=== PATIENT | male | born 1940 | race Caucasian/White ===

== ENCOUNTER 2016-06-02 18:15 | Emergency (ER) | payer MEDICARE ==
--- NOTE | ~2016-06-02 | CT4 ---
[facility] A Service of [facility] [place] [facility] RADIOLOGY TEXT RESULTS PATIENT: SINDHU GUZMAN LOCATION: [facility] : 44 UNIT #: [id number] AGE: [address]: Charli Hayes MD SEX: M ORDER DR: [id number] [facility] [address] [place], [place] [address] [id number] E MR#: [id number] Acc #: [id number] NAME: SINDHU GUZMAN : 1940 SEX: M STUDY DATE/TIME: 06/02/2016 17:42 UNIT: [facility] ROOM: STUDY DESCRIPTION: CT Abd and Pelv Wo Cont Attending Physician: Charli Hayes Ordering Physician: Ed Doctor [id number] [facility] Primary Care Physician: Silas Damon M.D. MEDICAL IMAGING REPORT This report is preliminary unless electronic signature is present PLAN CT scan of the abdomen and pelvis without contrast 06/02/2016 HISTORY Right flank pain for two weeks. Evaluate for obstructing renal calculus. TECHNIQUE Spiral CT was performed through the abdomen and pelvis without oral or intravenous contrast administration using renal stone protocol. This CT exam was performed with one or more of the following radiation dose reduction techniques: automatic exposure control, adjustment of mA and/or kV according to patient size, and iterative reconstruction. FINDINGS Abdomen: Exam is somewhat limited by the patient's large body habitus with resulting artifact. There is no prior exam for comparison. There is no obstructing renal or ureteral calculus. Kidneys are somewhat atrophic bilaterally. The liver is normal in appearance. 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 There is fatty infiltration of the pancreas. There is a 1 cm calcification in the head of the pancreas. Correlate clinically for chronic calcific pancreatitis. The adrenal glands are normal. Subtle areas of increased density are seen within the gallbladder lumen and may represent a cholelithiasis. Pelvis: There is colonic diverticulosis without evidence of diverticulitis. The gut is otherwise unremarkable. No adenopathy is seen and there is no free fluid in the abdomen or pelvis. IMPRESSION 1. Exam is somewhat limited by the patient's large body habitus with resulting artifact. [facility] A Service of [facility] [place] & [facility] RADIOLOGY TEXT RESULTS PATIENT: SINDHU GUZMAN LOCATION: [facility] : 44 UNIT #: [id number] AGE: [address]: Charli Hayes MD SEX: M ORDER DR: 2. No obstructing renal or ureteral calculus. Kidneys are somewhat atrophic bilaterally. 3. Fatty infiltration of the pancreas. There is a 1 cm calcification in the head of the pancreas which could reflect chronic calcific pancreatitis. Correlation with patient history is suggested. 4. 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 5. Multiple splenules are seen in the left upper quadrant. 6. Diverticulosis. No evidence of diverticulitis. 7. Questionable punctate areas of increased density in the gallbladder lumen could reflect cholelithiasis. Dictated by... Gurmeet Lee M.D. THIS IS AN ELECTRONICALLY VERIFIED REPORT Gurmeet Lee M.D. at 06/03/2016 2:14 PM LARISA/ko TD: 06/03/2016 08:57 JOB #: [id number] MEDICAL IMAGING REPORT COPY
[2016-06-02 18:03] LABS: BASOPHIL% 0.2 % (0-2.5); EOSINOPHIL# 0.3 X10e3 (0-0.7); HEMOGLOBIN 11.2 gm/dL (13.0-16.0); LYMPHOCYTE# 9.6 X10e3 (1.0-3.5); LYMPHOCYTE% 55.5 % (17.0-45.0); MEAN CELL VOLUME 84.8 FL (83-96); MEAN CORPUSCULAR HGB CONC 31.9 g/dL (30-36); MEAN PLATELET VOLUME 8.3 FL (6.5-11.5); MONOCYTE# 1.2 X10e3 (0-1.0); MONOCYTE% 6.9 % (3.0-12.0); NEUTROPHIL# 6.1 X10e3 (1.5-7.1); NEUTROPHIL% 35.4 % (40-75); PLATELET COUNT 236 X10e3 (140-420); RED BLOOD COUNT 4.13 X10e (3.90-5.60); RED CELL DISTRIBUTION WIDTH 16.2 % (11.0-15.5); WHITE BLOOD COUNT 17.2 X10e3 (4.0-10.5)
[2016-06-02 18:05] LABS: DIFF IND YES
[~2016-06-02 18:15] MED LIST: ADVIL200 M2 PO; ALBUTEROL17 GM INH; ALLOPURINOL300 MG PO; AMIODARONE PO; ASPIRIN81 MG PO; ATORVASTATIN CA10 MG PO; BENAZEPRIL PO; BENTYL20 MG PO; BUSPAR PO; BUSPAR5 M1 PO; BUSPIRONE HCL10 M1 PO; BUSPIRONE HCL10 MG PO; BYETTA5 MCG/0.02 SQ; CLARITIN10 M2 PO; CLARITIN10 M3 PO; CLINORIL PO; COLACE PO; COMBIVENT INH14.7 GM INH; CORDARONE200 M1 PO; CORTIZONE-528 GM TOP; COUMADIN PO; COUMADIN1 MG PO; COUMADIN5 MG PO; DEPO-TESTOS200 MG/ML INJ; DESYREL150 M1 PO; DESYREL300 MG PO; ELIQUIS5 MG PO; FLONASE 0.05% N16 G1; FLONASE16 GM; FLUOXETINE HCL20 M1 PO; FUROSEMIDE40 MG PO; GABAPENTIN300 M2 PO; GABAPENTIN300 MG PO; GABAPENTIN600 MG PO; GLUCOTROL PO; GLUCOTROL10 MG PO; IMDUR30 MG PO; LANSOPRAZOLE30 MG PO; LASIX PO; LASIX20 MG PO; LIPITOR20 MG PO; LISINOPRIL5 MG PO; LOPRESSOR PO; LORATADINE PO; LOSARTAN POTASS50 MG PO; LOTENSIN PO; LOTENSIN20 MG PO; MEDI-MECLIZINE25 M1 PO; METFORMIN HCL1000 M1 PO; METFORMIN HCL500 M1 PO; METFORMIN PO; METOPROLOL SUCC50 MG PO; MS CONTIN PO; MULTIVITAMIN1 UDCAP PO; NASONEX17 GM; NEURONTIN PO; NITROGYLCERIN SUBLINGUAL; OMEPRAZOLE20 M1 PO; PRAVACHOL PO; PREVACID15 MG PO; PRILOSEC PO; PRILOSEC20 M1 PO; PRILOSEC20 MG PO; PROAIR HFA8.5 GM IH; PROAIR HFA8.5 GM INH; PROTONIX PO; PROZAC PO; REQUIP0.25 MG PO; REQUIP0.5 MG PO; SARAFEM20 MG PO; SIMVASTATIN40 MG PO; TIZANIDINE HCL4 M1 PO; TRAZODONE HCL100 MG PO; TRAZODONE HCL150 MG PO; TRAZODONE PO; ULORIC40 MG; VICODIN 5/500 T1 TAB PO; VITAMIN B12-FO1 EACH PO; WARFARIN SODIUM2 M1 PO; WELLBUTRIN PO; XARELTO20 MG PO; ZANAFLEX4 M1 PO; ZAROXYLYN PO; ZESTRIL2.5 M1 PO; ZOCOR PO; ZOCOR80 MG PO; ZYLOPRIM PO
[2016-06-02 18:19] LABS: BUN/CREATININE RATIO 13.07; CALCIUM SERUM 8.2 mg/dL (8.4-10.2); CREATININE SERUM 1.3 mg/dL (0.6-1.4); GLOM FILT RATE Estimated 57.5 mL/min (>60); POTASSIUM 3.1 mmol/L (3.5-5.1)
[2016-06-02 18:22] LABS: URINE SOURCE CLEAN CATCH
[2016-06-02 18:29] LABS: ANISOCYTOSIS MOD; PLATELET ESTIMATE NORMAL (NORMAL); POIKILOCYTOSIS SL
[2016-06-02 18:30] LABS: URINE APPEARANCE CLEAR; URINE BILIRUBIN NEG (NEG); URINE BLOOD NEG (NEG); URINE COLOR YELLOW; URINE GLUCOSE NEG (NEG); URINE KETONE NEG (NEG); URINE LEUKOCYTE ESTERASE NEG (NEG); URINE NITRATE NEG (NEG); URINE PROTEIN NEG (NEG); URINE SPECIFIC GRAVITY 1.011 (1.003-1.035); URINE UROBILINOGEN 0.2 MG/DL (NEG)
[2016-06-02 18:36] LABS: CULTURE INDICATED? NO
== END 2016-06-02 19:12 | disposition home or self-care (01) ==
LOC: CED 18:15
PROVIDERS: Emergency Medicine
DX: M54.5 Low back pain (principal); J45.909 Unspecified asthma, uncomplicated; I10 Essential (primary) hypertension; Z90.89 Acquired absence of other organs; Z87.891 Personal history of nicotine dependence
CPT/HCPCS: 74176; 80048; 81003; 85025; 99284